=== PATIENT | male | born 1955 | race Caucasian/White ===

== ENCOUNTER 2016-04-14 17:53 | Inpatient (IN) | payer BC, OTHER ==
[~2016-04-14] VITALS: Ht 175.3 cm; Wt 94.9 kg
[2016-04-14] MEDS ORDERED: SODIUM CHLORIDE 0.9% 1000ML 1,000 ML IV SCH (18:10)
--- NOTE | 2016-04-14 18:17 | EMERGENCY ROOM VISIT NOTE ---
History Report prepared by Dar: Delma Pate Under the Supervision of: Dr. David Grimes M.D. 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 The patient's states that the patient came home from work today and took a nap like he usually does after work at 1400. She states when he woke up 3 hours later she noticed he was very confused. 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 She states that she has not noticed any changes in his speech or weakness. The states that she believe her was not showing any symptoms when he arrived home for work but states she did not have much interaction with her before his nap. The patient states that he believes that he felt fine before taking his nap. The patient along with his state the patient has not had any recent change in medication and states he only takes a baby aspirin daily. His states the patient use to take hypertension medication but had been taken off it by his primary care physician due to an improvement in his hypertension. She states the patient does not take any blood thinners. 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 Please see Additional Medical History Sheet. Past Medical & Surgical Medical Problems: (1) Hypertension Family History Cancer Diabetes mellitus Heart disease Hypertension Social History Smoking Status: Current Every Day Smoker Smokeless Tobacco Use: Yes Alcohol Use: occasionally (3-4 drinks/week) Housing Status: lives with significant other Current/Historical Medications Scheduled Aspirin (Aspirin Ec), 81 MG PO DAILY Scheduled PRN Ibuprofen (Advil), 5-6 TAB PO DIRECTED PRN for Pain Allergies Coded Allergies: No Known Allergies (Unverified , 04/14/16) Physical Exam Vital Signs Date Time Temp Pulse Resp B/P Pulse Ox O2 Delivery O2 Flow Rate FiO2 04/14/16 21:28 124/65 96 Room Air 04/14/16 21:24 63 16 04/14/16 20:58 109/72 04/14/16 20:54 57 13 04/14/16 20:28 137/78 04/14/16 20:08 133/79 04/14/16 19:28 142/86 04/14/16 19:24 57 18 04/14/16 19:24 55 18 155/81 96 Room Air 04/14/16 18:30 98 Room Air 04/14/16 18:17 65 04/14/16 17:57 36.9 62 20 179/98 98 Room Air Physical Exam GENERAL: Patient awake, alert, and answered questions but is disoriented and admits to being confused and has normal speech. SKIN: No erythema, pallor, cyanosis or rash HEENT: Normal head, pupils equal, reactive to light and accommodation. Ears normal. Oral cavity and posterior pharynx appear normal. Neck: Without adenopathy, no neck vein distention. LUNGS: Clear to auscultation. No wheezes, no rales, no rhonchi. HEART: No murmurs. No gallops. No rubs ABDOMEN: No masses, no rebound, no hepatomegaly or splenomegaly. EXTREMITIES: No signs of trauma. No pedal or pretibial edema. No calf or thigh tenderness. NEUROLOGIC: Normal speech, patient is confused but appears to have no other focal findings. Cranial nerves II-XII within normal limits. No gross motor sensory function deficits. Medical Decision & Procedures ER Provider Diagnostic Interpretation: CT results are interpretations by the radiologist and per my review. HEAD CT NONCONTRAST CT DOSE: 823.94 mGycm HISTORY: Mental status change Stroke TECHNIQUE: Multiaxial CT images of the head were performed without the use of intravenous contrast. Comparison: None. Findings: The paranasal sinuses and mastoid air cells are clear. The calvarium and skull base are intact. The ventricles and sulci are within normal limits. There is no mass, hematoma, midline shift, or acute infarct. Impression: No acute intracranial abnormality. Electronically signed by: Dimitris Alexander M.D. 04/14/2016 6:22 PM Dictated Date/Time: 04/14/2016 6:21 PM Laboratory Results 04/14/16 17:15 Red Blood Count 4.59, Mean Corpuscular Volume 93.0, Mean Corpuscular Hemoglobin 32.7, Mean Corpuscular Hemoglobin Concent 35.1, Mean Platelet Volume 9.7, Neutrophils (%) (Auto) 50.3, Lymphocytes (%) (Auto) 38.2, Monocytes (%) (Auto) 9.1, Eosinophils (%) (Auto) 1.8, Basophils (%) (Auto) 0.4, Neutrophils # (Auto) 4.50, Lymphocytes # (Auto) 3.43, Monocytes # (Auto) 0.82, Eosinophils # (Auto) 0.16, Basophils # (Auto) 0.04 04/14/16 17:15 Test 04/14/16 17:15 04/14/16 18:41 04/14/16 20:15 White Blood Count 8.97 K/uL (4.8-10.8) Red Blood Count 4.59 M/uL (4.7-6.1) Hemoglobin 15.0 g/dL (14.0-18.0) Hematocrit 42.7 % (42-52) Mean Corpuscular Volume 93.0 fL (80-100) Mean Corpuscular Hemoglobin 32.7 pg (25-34) Mean Corpuscular Hemoglobin Concent 35.1 g/dl (32-36) Platelet Count 253 K/uL (130-400) Mean Platelet Volume 9.7 fL (7.4-10.4) Neutrophils (%) (Auto) 50.3 % Lymphocytes (%) (Auto) 38.2 % Monocytes (%) (Auto) 9.1 % Eosinophils (%) (Auto) 1.8 % Basophils (%) (Auto) 0.4 % Neutrophils # (Auto) 4.50 K/uL (1.4-6.5) Lymphocytes # (Auto) 3.43 K/uL (1.2-3.4) Monocytes # (Auto) 0.82 K/uL (0.11-0.59) Eosinophils # (Auto) 0.16 K/uL (0-0.5) Basophils # (Auto) 0.04 K/uL (0-0.2) RDW Standard Deviation 45.1 fL (36.4-46.3) RDW Coefficient of Variation 13.3 % (11.5-14.5) Immature Granulocyte % (Auto) 0.2 % Immature Granulocyte # (Auto) 0.02 K/uL (0.00-0.02) Prothrombin Time 10.4 SECONDS (9.0-12.0) Prothromb Time International Ratio 1.0 (0.9-1.1) Activated Partial Thromboplast Time 27.5 SECONDS (21.0-31.0) Partial Thromboplastin Ratio 1.1 Anion Gap 9.0 mmol/L (3-11) Est Creatinine Clear Calc Drug Dose 77.2 ml/min Estimated GFR () 76.8 Estimated GFR (Non- 66.3 BUN/Creatinine Ratio 14.7 (10-20) Calcium Level 9.2 mg/dl (8.5-10.1) Total Creatine Kinase 116 U/L (39-308) Creatine Kinase MB 1.5 ng/ml (0.5-3.6) Creatine Kinase MB Ratio 1.3 (0-3.0) Troponin I < 0.015 ng/ml (0-0.045) Bedside Glucose 97 mg/dl (70-99) Urine Opiates Screen NEG (NEG) Urine Methadone, Qualitative NEG (NEG) Urine Barbiturates NEG (NEG) Urine Phencyclidine (PCP) Level NEG (NEG) Ur Amphetamine/Methamphetamine NEG (NEG) MDMA (Ecstasy) Screen NEG (NEG) Urine Benzodiazepines Screen NEG (NEG) Urine Cocaine Metabolite NEG (NEG) Urine Marijuana (THC) NEG (NEG) Laboratory results as stated above per my review. Medications Administered Medications (Trade) Dose Ordered Sig/John Route Start Time Stop Time Status Last Admin Dose Admin Sodium Chloride (Nss 1000ml) 1,000 ml @ 50 mls/hr Q20H IV 04/14/16 18:10 05/14/16 18:09 04/14/16 18:10 50 MLS/HR Aspirin/Aluminum/ Magnesium/Ca Carb (Ascriptin Tab) 325 mg ONE ONCE PO 04/14/16 19:45 04/14/16 19:46 DC 04/14/16 19:45 325 MG ECG Indication: altered mental status Rate (beats per minute): 48 Rhythm: sinus bradycardia Findings: no acute ischemic change, no ectopy ED Course 1805: Past medical records reviewed. The patient was evaluated in room B8. A complete history and physical examination was performed. 1809: Ordered Sodium Chloride 1,000 ml @ 50 mls/hr IV. 1848: I discussed the case with Dr. Rebob Marinelli [facility]. He agreed to evaluate the patient through video communication. 1926:II discussed the case with Dr. Liliana Marinelli [facility]. After evaluating the patient he states he diagnosed the patient with transient global amnesia. He suggest the patient have a EEG, MRI, MRA of the spine, having his blood pressure monitored and be given aspirin. 1935: I reevaluated the patient and updated him on his results. 1943: I discussed the case with Dr. Charlotte SOLORIO Hospitalist, as well as Dr. Ford Neurology [facility] recommendations. He agreed to evaluate the patient for further management and care. 1944: Ordered Ascriptin Tab 325 mg PO. 2011: I revaluated the patient and discussed his admission for further evaluation with him. Medical Decision Nurses notes reviewed. Medical history sheet reviewed. Differential diagnosis includes but is not limited to: TIA, CVA, metabolic disorder, and infection. Multiple labs, EKG and imaging were obtained. Please see above. CT does not reveal bleed. Blood work was unremarkable. The patient arrived with significant confusion but that resolved while here. He had no focal findings. The patient went through a stroke protocol using the [place] neurologist. His NIH stroke score ended up being 0. In light of the above is felt the patient has transient global amnesia. The patient was given aspirin while here in the ED.. Consults Time Called: 1847 Consulting Physician: Dr. Liliana Marinelli [facility] Returned Call: 1848 I discussed the case with Dr. Liliana Marinelli [facility]. He agreed to evaluate the patient through video communication. Additional Consults: Time Called: 1924 Consulted Physician: Dr. Liliana Marinelli [facility] Returned Call: 1926 Additional Comments: I discussed the case with Dr. Liliana Marinelli [facility]. After evaluating the patient he states he diagnosed the patient with transient global amnesia. He suggest the patient have a EEG, MRI, MRA of the spine, having his blood pressure monitored and be given aspirin. Time Called: 1936 Consulted Physician: Dr. Charlotte SOLORIO Hospitalist Returned Call: 1944 Additional Comments: I discussed the case with Dr. Charlotte SOLORIO Hospitalist, as well as Dr. Liliana Marinelli [facility] recommendations. He agreed to evaluate the patient for further management and care. Impression Primary Impression: Transient global amnesia Critical Care I have personally spent greater than 35 minutes of critical care time in the direct management of this patient. This includes bedside care, interpretation of diagnostic studies, and testing, discussion with consultants, patient, and family members, and other required patient management activities. This 35 minutes is in excess of all separately billable procedures. Scribe Attestation The scribe's documentation has been prepared under my direction and personally reviewed by me in its entirety. I confirm that the note above accurately reflects all work, treatment, procedures, and medical decision making performed by me. Departure Information Dispostion Being Evaluated By Hospitalist Referrals RV. Claire MD (PCP) Patient Instructions My [facility]
--- NOTE | 2016-04-14 18:23 | DIAGNOSTIC IMAGING REPORT ---
HEAD CT NONCONTRAST CT DOSE: 823.94 mGycm HISTORY: Mental status change Stroke TECHNIQUE: Multiaxial CT images of the head were performed without the use of intravenous contrast. Comparison: None. Findings: The paranasal sinuses and mastoid air cells are clear. The calvarium and skull base are intact. The ventricles and sulci are within normal limits. There is no mass, hematoma, midline shift, or acute infarct. Impression: No acute intracranial abnormality. Electronically signed by: Dimitris Alexander M.D. 04/14/2016 6:22 PM Dictated Date/Time: 04/14/2016 6:21 PM
[2016-04-14 18:26] LABS: BASO % 0.4 %; BASO ABS # 0.04 K/uL (0-0.2); COMPLETE YES; EOS % 1.8 %; HEMATOCRIT 42.7 % (42-52); IG% 0.2 %; LYMPH % 38.2 %; LYMPH ABS # 3.43 K/uL (1.2-3.4); MEAN CORPUSCULAR HEMOGLOBIN 32.7 pg (25-34); MEAN CORPUSCULAR HGB CONC 35.1 g/dl (32-36); MEAN PLATELET VOLUME 9.7 fL (7.4-10.4); MONO % 9.1 %; NEUT % 50.3 %; PLATELET COUNT 253 K/uL (130-400); RED BLOOD COUNT 4.59 M/uL (4.7-6.1); WHITE BLOOD COUNT 8.97 K/uL (4.8-10.8)
[2016-04-14] MEDS ORDERED: ASPI81TA28 PO (18:35)
[2016-04-14] MEDS ORDERED: IBUP-1050 PO (18:36)
[2016-04-14 18:37] LABS: PARTIAL THROMBOPLASTIN RATIO 1.1; PROTHROMBIN TIME (PATIENT) 10.4 SECONDS (9.0-12.0)
[2016-04-14 18:46] LABS: BLOOD UREA NITROGEN 18 mg/dl (7-18); BUN/CREATININE RATIO 14.7 (10-20); CALCIUM 9.2 mg/dl (8.5-10.1); CARBON DIOXIDE 26 mmol/L (21-32); CHLORIDE 106 mmol/L (98-107); GLUCOSE 92 mg/dl (70-99); POTASSIUM 4.2 mmol/L (3.5-5.1); SODIUM 141 mmol/L (136-145)
[2016-04-14 18:51] LABS: CKMB/CK RATIO 1.3 (0-3.0)
[2016-04-14] MEDS ORDERED: ASPIRIN/ALUM/MAGNES/CAL CARB 325 MG TAB PO ONE (19:45)
[2016-04-14 20:45] LABS: BENZODIAZEPINE, URINE NEG (NEG); COCAINE,URINE NEG (NEG); PHENCYCLIDINE, URINE NEG (NEG)
[2016-04-14] MEDS ORDERED: ALUMINUM/MAGNESIUM/SIMETH (MAALOX MAX) 30 ML UDC PO PRN (22:00)
[2016-04-14] MEDS ORDERED: ONDANSETRON INJ 2 MG/ML 2 ML VIAL IV PRN (22:00)
[2016-04-14] MEDS ORDERED: POLYETHYLENE (MIRALAX) 17 GM PACK PO PRN (22:00)
[2016-04-14] MEDS ORDERED: PHARMACIST DISCHARGE MED REC CONSULT PRN (22:00)
[2016-04-14] MEDS ORDERED: ACETAMINOPHEN 325 MG TAB PO PRN (22:00)
[2016-04-14] MEDS ORDERED: MAGNESIUM HYDROXIDE SUSP 30 ML UDC PO PRN (22:00)
--- NOTE | 2016-04-14 22:22 | History and Physical ---
History & Physical Date & Time of Service: Apr 14, 2016 at 22:08 Chief Complaint: Confusion Primary Care Physician: RV. Claire MD History of Present Illness Source: patient, spouse 60 y/o M who denies a significant medical history. 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 He recalls waking up at 5pm, walking to the bathroom and then does not remember anything until he arrived at the hospital a few hours later. His was with him throughout and states that he was disoriented and had lost his short-term memory although he did have long-term recall. He does not use sleep aids. He denies a FITZGERALD, unilateral weakness, slurred speech or impaired vision. He has no history of vascular disease. Initial CT obtained in the ER was negative for any pathology. He will be admitted for a TIA/TGA work-up. He is fully oriented at the time of admission and states that he feels back to baseline. Family History Cancer Diabetes mellitus Heart disease Hypertension Mother with Hx CVA Father following PR Social History Smokes five cigarettes daily. 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 Drinks ETOH 2 x wk when he mows the lawn. Smoking Status: Current Every Day Smoker Smokeless Tobacco Use: Yes Multi-Drug Resistant Organisms History of MDRO: No Allergies Coded Allergies: No Known Allergies (Unverified , 04/14/16) Home Medications Scheduled Aspirin (Aspirin Ec), 81 MG PO DAILY Scheduled PRN Ibuprofen (Advil), 5-6 TAB PO DIRECTED PRN for Pain Review of Systems Constitutional: No chills, No fever, No sweats Eyes: No eye pain, No worsening of vision ENT: No hearing loss, No nasal symptoms, No unusual epistaxis Respiratory: No cough, No sputum, No wheezing Cardiovascular: No PND, No chest pain, No orthopnea Abdomen: No nausea, No pain, No vomiting Musculoskeletal: No joint pain, No muscle pain Genitourinary - Male: No dysuria, No hematuria, No urinary frequency, No urinary urgency Neurologic: + memory loss, + problem reported (disorientation) Psychiatric: No depression symptoms Endocrine: No fatigue Integumentary: No rash Allergic / Immunologic: No environmental allergies Physical Exam Vital Signs Date Time Temp Pulse Resp B/P Pulse Ox O2 Delivery O2 Flow Rate FiO2 04/14/16 21:28 124/65 96 Room Air 04/14/16 21:24 63 16 04/14/16 20:58 109/72 04/14/16 20:54 57 13 04/14/16 20:28 137/78 04/14/16 20:08 133/79 04/14/16 19:28 142/86 04/14/16 19:24 57 18 04/14/16 19:24 55 18 155/81 96 Room Air 04/14/16 18:30 98 Room Air 04/14/16 18:17 65 04/14/16 17:57 36.9 62 20 179/98 98 Room Air General Appearance: WD/WN, no apparent distress Head: normocephalic, atraumatic Eyes: normal inspection, PERRL, EOMI ENT: normal ENT inspection, hearing grossly normal, pharynx normal Neck: supple, no JVD Respiratory/Chest: chest non-tender, lungs clear, normal breath sounds, no respiratory distress, no accessory muscle use Cardiovascular: regular rate, rhythm, no edema, no gallop, no JVD, no murmur, normal peripheral pulses Abdomen/GI: normal bowel sounds, non tender, soft Back: normal inspection, no CVA tenderness Extremities/Musculoskelatal: normal inspection, no calf tenderness, normal capillary refill, no pedal edema, normal range of motion 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, no motor/sensory deficits, alert, normal mood/affect, normal reflexes, oriented x 3 Skin: normal color, warm/dry, no rash Lymphatic: no adenopathy Diagnostics Laboratory Results Results Past 24 Hours Test 04/14/16 17:15 04/14/16 18:41 04/14/16 20:15 04/14/16 21:48 Range/Units White Blood Count 8.97 4.8-10.8 K/uL Red Blood Count 4.59 4.7-6.1 M/uL Hemoglobin 15.0 14.0-18.0 g/dL Hematocrit 42.7 42-52 % Mean Corpuscular Volume 93.0 80-100 fL Mean Corpuscular Hemoglobin 32.7 25-34 pg Mean Corpuscular Hemoglobin Concent 35.1 32-36 g/dl Platelet Count 253 130-400 K/uL Mean Platelet Volume 9.7 7.4-10.4 fL Neutrophils (%) (Auto) 50.3 % Lymphocytes (%) (Auto) 38.2 % Monocytes (%) (Auto) 9.1 % Eosinophils (%) (Auto) 1.8 % Basophils (%) (Auto) 0.4 % Neutrophils # (Auto) 4.50 1.4-6.5 K/uL Lymphocytes # (Auto) 3.43 1.2-3.4 K/uL Monocytes # (Auto) 0.82 0.11-0.59 K/uL Eosinophils # (Auto) 0.16 0-0.5 K/uL Basophils # (Auto) 0.04 0-0.2 K/uL RDW Standard Deviation 45.1 36.4-46.3 fL RDW Coefficient of Variation 13.3 11.5-14.5 % Immature Granulocyte % (Auto) 0.2 % Immature Granulocyte # (Auto) 0.02 0.00-0.02 K/uL Prothrombin Time 10.4 9.0-12.0 SECONDS Prothromb Time International Ratio 1.0 0.9-1.1 Activated Partial Thromboplast Time 27.5 21.0-31.0 SECONDS Partial Thromboplastin Ratio 1.1 Sodium Level 141 136-145 mmol/L Potassium Level 4.2 3.5-5.1 mmol/L Chloride Level 106 98-107 mmol/L Carbon Dioxide Level 26 21-32 mmol/L Anion Gap 9.0 3-11 mmol/L Blood Urea Nitrogen 18 7-18 mg/dl Creatinine 1.20 0.60-1.40 mg/dl Est Creatinine Clear Calc Drug Dose 77.2 ml/min Estimated GFR () 76.8 Estimated GFR (Non- 66.3 BUN/Creatinine Ratio 14.7 10-20 Random Glucose 92 70-99 mg/dl Calcium Level 9.2 8.5-10.1 mg/dl Total Creatine Kinase 116 39-308 U/L Creatine Kinase MB 1.5 0.5-3.6 ng/ml Creatine Kinase MB Ratio 1.3 0-3.0 Troponin I < 0.015 0-0.045 ng/ml Bedside Glucose 97 70-99 mg/dl Urine Opiates Screen NEG NEG Urine Methadone, Qualitative NEG NEG Urine Barbiturates NEG NEG Urine Phencyclidine (PCP) Level NEG NEG Ur Amphetamine/Methamphetamine NEG NEG MDMA (Ecstasy) Screen NEG NEG Urine Benzodiazepines Screen NEG NEG Urine Cocaine Metabolite NEG NEG Urine Marijuana (THC) NEG NEG Diagnostic Radiology CT head negative Normal EKG Impression Assessment and Plan 60 y/o M who denies a significant medical history. Recalls waking up at 5pm following a nap, walking to the bathroom and then does not remember anything until he arrived at the hospital a few hours later. His was with him throughout and states that he was disoriented and had lost his short-term memory , although he did have long-term recall. Initial CT obtained in the ER was negative for any pathology. He will be admitted for a TIA/TGA work-up. He is fully oriented at the time of admission and states that he feels back to baseline. 1) TIA - transient global amnesia - admitted with CVA protocol - placed on full dose ASA and Statin pending AM lipid profile - pt is normotensive. Frequent neuro checks requested. MRI/MRA pending. 2) Advised on smoking cessation. Full code - Heparin prophylaxis Total time foir this admit including review of labs, meds, imaging, EKG - discussion with Pt/, ER attending - 33 min Case was discussed wuth the stroke service at [place] prior to admission Level of Care Telemetry Resuscitation Status FULL RESUSCITATION VTE Prophylaxis VTE Risk Assessment Done? Y/N: Yes Risk Level: Low Given or contraindicated: Unfractionated heparin SQ
[2016-04-14 22:24] VITALS: Ht 175.3 cm; Wt 94.9 kg
--- NOTE | 2016-04-14 22:59 | DIAGNOSTIC IMAGING REPORT ---
Brain MRA HISTORY: Mental status change cava TECHNIQUE: 3-D [id number] MRA of the brain was performed without contrast. COMPARISON STUDY: None. FINDINGS: Visualized intracranial internal carotid arteries, distal vertebral arteries, and basilar artery are widely patent. 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 IMPRESSION: No significant stenosis, occlusion, or aneurysm within the [place]. Electronically signed by: Dimitris Alexander M.D. 04/14/2016 10:58 PM Dictated Date/Time: 04/14/2016 10:57 PM
[2016-04-14] MEDS ORDERED: MAGNEVIST IV PRN (23:30)
[2016-04-15] VITALS (8 sets, daily range): BP systolic 107–130; BP diastolic 64–77; PULSE 49–107; TEMP 36.3–37.1; O2SAT 94–97
[2016-04-15] MEDS: HEPARIN SOD 5000 UNIT/0.5 ML CARP SQ SCH ×3 (05:50→21:39)
[2016-04-15 06:08] LABS: ESTIMATED AVERAGE GLUCOSE 108 mg/dl; HA1C FLAG Normal (Normal)
--- NOTE | 2016-04-15 06:42 | DIAGNOSTIC IMAGING REPORT ---
MRA OF THE NECK WITH AND WITHOUT CONTRAST CLINICAL HISTORY: Confusion. Possible cerebrovascular accident. COMPARISON STUDY: None. TECHNIQUE: Unenhanced and contrast-enhanced MRA of the neck was performed. Injection of 20 mL of Magnevist IV was uneventful. NASCET criteria were utilized to estimate the degree of carotid stenosis. FINDINGS: The bilateral common carotid, internal carotid and vertebral arteries are patent. No stenosis is identified. There is no evidence for dissection. No vessel occlusion is identified. The soft tissues of the neck are suboptimally assessed on this exam but are grossly unremarkable. The left vertebral artery is dominant. IMPRESSION: Unremarkable MRA of the neck. Electronically signed by: Alvin Orellana M.D. 04/15/2016 6:41 AM Dictated Date/Time: 04/15/2016 6:37 AM
[2016-04-15 07:12] LABS: BASO % 0.3 %; BASO ABS # 0.02 K/uL (0-0.2); COMPLETE YES; EOS % 2.7 %; HEMATOCRIT 39.3 % (42-52); IG% 0.2 %; LYMPH % 28.9 %; LYMPH ABS # 1.84 K/uL (1.2-3.4); MEAN CELL VOLUME 91.2 fL (80-100); MEAN CORPUSCULAR HGB CONC 35.1 g/dl (32-36); MEAN PLATELET VOLUME 9.4 fL (7.4-10.4); NEUT % 56.9 %; PLATELET COUNT 241 K/uL (130-400); RED BLOOD COUNT 4.31 M/uL (4.7-6.1); WHITE BLOOD COUNT 6.36 K/uL (4.8-10.8)
--- NOTE | 2016-04-15 07:22 | DIAGNOSTIC IMAGING REPORT ---
MRI OF THE BRAIN WITHOUT IV CONTRAST CLINICAL HISTORY: Change in mental status. COMPARISON STUDY: CT of the brain dated 04/14/2016. TECHNIQUE: MRI of the brain was performed utilizing various T1 and T2-weighted sequences in the axial, sagittal, and coronal planes. IV contrast was not administered for this examination. FINDINGS: Brain parenchyma: The brain parenchyma is normal in appearance. There is no hemorrhage or mass effect. There is no restricted diffusion to suggest acute ischemia. Sandoval-white matter differentiation is preserved. No extra-axial fluid collection is seen. The cerebellar tonsils are normal in configuration. Ventricles, sulci, and cisterns: Normal in configuration. Pituitary and sella: Unremarkable. Intracranial vasculature: Normal flow voids are maintained at the skull base. Orbits: The bony orbits are grossly intact. Orbital contents are normal in appearance. Sinuses and mastoids: There is mild to moderate mucosal thickening within the left maxillary antrum. Trace mucosal thickening seen throughout the remaining paranasal sinuses. The mastoid air cells are clear. Calvarium: Unremarkable. Cervical cord: Partially visualized cervical spinal cord is normal in morphology and signal intensity. IMPRESSION: No acute intracranial abnormality. Electronically signed by: Eulalio Henriquez M.D. 04/15/2016 7:20 AM Dictated Date/Time: 04/15/2016 7:18 AM
[2016-04-15 07:46] LABS: BUN/CREATININE RATIO 14.2 (10-20); CALCIUM 8.4 mg/dl (8.5-10.1); POTASSIUM 4.2 mmol/L (3.5-5.1)
[2016-04-15 07:50] LABS: CHOLESTEROL/HDL RATIO 3.5
--- NOTE | 2016-04-15 08:26 | Neurology Consultation ---
Neurology Consultation Date of Consultation: Apr 15, 2016. Attending Physician: Leodan Porter MD Primary Care Physician: RV. Claire MD Reason for Consultation: Patient is a 60-year-old, was asked to see the request of Dr. Porter, for neurologic consultation regarding transient period of confusion/memory problems. History of Present Illness Source: patient, spouse, hospital records This patient has no history of stroke, seizures, significant head trauma, migraine or other headaches, heart disease, dyslipidemia, or diabetes. He does have a history of hypertension in the past which was treated but more recently he was taken off medication because his numbers look better. He's been on 81 mg aspirin tablet for 8 years on "general principle". He went to work as usual April 14. 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 He did well at work and had no illness or significant issues. He was not overly tired or sleep deprived. He came home at 2 PM as usual. He went right to his usual naps and his , who was present in the room today, did not interact with much so she cannot be certain whether he was confused or not prior to taking a nap. He woke up at 5 PM as usual. His noticed that something was wrong because the patient came out after a 10 minute interval stating he couldn't figure out how to feed the dogs (something he does every day right after he wakes up from his nap). He was having no memory of events of work and the patient tells me now that he had no recall of anything from the time he woke up from his nap until now after he was at the emergency room. The patient's states that he had no complaint of pain or headache he had no balance problems, facial droop, vision complaints, weakness or numbness of the limbs, incontinence, or any physical abnormality. It was just that his memory was poor and he did not know any facts about time place or current events. He arrived in emergency room on January 12 at 1757 hours. Blood pressure was 179/98 with a pulse of 62 and regular, temperature 36.9, respiratory rate 20, O2 saturation 98%. He had no focal neurologic deficits on exam when he was described as "confused" . CT scan of the head was unremarkable. Chem profile, CBC and urine tox screen were unremarkable as well. He was connected with Tele-stroke and was evaluated by Dr. Ford from [facility]. He felt the patient had transient global amnesia and did not have a stroke. TPA was not given. An MRI of the brain was unremarkable with no evidence of acute stroke and no evidence of old small vessel ischemic changes or other abnormalities. MR angiography of the head was unremarkable with no significant stenoses or aneurysms MR angiography of the neck was unremarkable as well with no significant stenoses. This morning the patient feels normal with no symptoms. His memory is good and according to him and his is back to baseline. Past Medical/Surgical History Medical Problems: (1) Transient global amnesia Status: Acute Hypertension History of tonsillectomy, throat polyp removal in the , right knee ligament repair in 1978 and more recently foot surgery with bunionectomy. Family History Mother in her 70s of a stroke and hypertension. Father at 81 with an [facility] and had hypertension Social History Patient smokes a pack of cigarettes every 3-4 days (about 5 cigarettes a day). He'll drink 3 beers twice a week when he goes bowling. He has been working at [employer] as media services coordinator for the last 20 years. 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 Smoking Status: Current every day smoker Smokeless Tobacco Use: No Alcohol Use: occasionally Drug Use: none Marital Status: Housing Status: lives with family, lives with significant other Occupation Status: employed Allergies Coded Allergies: No Known Allergies (Unverified , 04/14/16) Current Inpatient Medications Current Inpatient Medications Medications (Trade) Dose Ordered Sig/John Route Start Time Stop Time Status Last Admin Dose Admin Atorvastatin Calcium (Lipitor Tab) 40 mg QAM PO 04/15/16 09:00 05/15/16 08:59 04/15/16 07:48 40 MG Aspirin (Ecotrin Tab) 325 mg QAM PO 04/15/16 09:00 05/15/16 08:59 04/15/16 07:48 325 MG Miscellaneous Information (Pharmacist Discharge Med Rec Consult) 1 ea UD PRN N/A 04/14/16 22:00 05/14/16 21:59 Heparin Sodium (Porcine) (Heparin Sq 5000 Unit/0.5ml) 5,000 unit Q8 SQ 04/15/16 06:00 05/15/16 05:59 04/15/16 05:50 5,000 UNIT Acetaminophen (Tylenol Tab) 650 mg Q4H PRN PO 04/14/16 22:00 05/14/16 21:59 Al Hydrox/Mg Hydrox/Simethicone (Maalox Max Susp) 15 ml Q4H PRN PO 04/14/16 22:00 05/14/16 21:59 Magnesium Hydroxide (Milk Of Magnesia Susp) 30 ml Q12H PRN PO 04/14/16 22:00 05/14/16 21:59 Ondansetron HCl (Zofran Inj) 4 mg Q6H PRN IV 04/14/16 22:00 05/14/16 21:59 Polyethylene (Miralax Powder Packet) 17 gm DAILY PRN PO 04/14/16 22:00 05/14/16 21:59 Gadopentetate Dimeglumine (Magnevist) 20 ml UD PRN IV 04/14/16 23:30 04/18/16 23:29 Review of Systems Constitutional: No fatigue, No weakness, No weight loss Eyes: No diplopia, No worsening of vision ENT: No hearing loss, No tinnitus Respiratory: No cough, No shortness of breath Cardiovascular: No chest pain, No palpitations Abdomen: No nausea, No pain Musculoskeletal: No joint pain, No muscle pain Genitourinary - Male: No dysuria, No hematuria, No urinary incontinence Neurologic: No balance problems, No memory loss, No numbness/tingling, No vertigo, No weakness Psychiatric: No anxiety, No depression symptoms Endocrine: No fatigue Hematologic / Lymphatic: No abnormal bleeding/bruising Integumentary: No rash Allergic / Immunologic: No hives Physical Exam Vital Signs (Past 24 Hrs): Date Time Temp Pulse Resp B/P Pulse Ox O2 Delivery O2 Flow Rate FiO2 04/15/16 07:58 36.8 50 16 113/66 96 Room Air 04/15/16 05:10 36.3 49 16 107/67 97 Room Air 04/15/16 04:00 Room Air 04/15/16 00:00 36.7 52 16 130/77 97 Room Air 04/14/16 23:50 57 20 119/69 96 Room Air 04/14/16 22:24 Room Air 04/14/16 21:28 124/65 96 Room Air 04/14/16 21:24 63 16 04/14/16 20:58 109/72 04/14/16 20:54 57 13 04/14/16 20:28 137/78 04/14/16 20:08 133/79 04/14/16 19:28 142/86 04/14/16 19:24 57 18 04/14/16 19:24 55 18 155/81 96 Room Air 04/14/16 18:30 98 Room Air 04/14/16 18:17 65 04/14/16 17:57 36.9 62 20 179/98 98 Room Air The patient is right-handed. The patient is awake and alert. Speech is normal without aphasia or dysarthria. Mentation and thought processes are intact with orientation and normal fund of knowledge. Mood and affect are normal and appropriate. Appearance and grooming are normal. The discs are sharp with positive venous pulsations. There are no exudates, hemorrhages, or blood vessel changes seen. Pupils are 4mm bilaterally and reactive to light. Extraocular eye muscles are intact without nystagmus. Visual acuity and visual gay seem normal grossly to confrontation. There are no deficits to sensation of the face bilaterally. Corneal reflexes are positive bilaterally. Facial strength and symmetry is normal bilaterally. Hearing seems intact grossly to voice and finger rub. Palate moves well without asymmetry. There is normal sternocleidomastoid and trapezius strength bilaterally. Tongue is midline with good strength bilaterally. Neck is with full range of motion without discomfort. There are no cervical bruits. There are no cranial or ocular bruits. Heart is without murmur. Cervical, thoracic, and lumbar spine are nontender to palpation. Gait is normal. There is good are swing, turn, stance, and balance. With outstretched arms there is no drift. There are no resting, postural, or action tremors. There is no ataxia with [id number] testing. There is good facility in the hands. There are no abnormal involuntary movements noted. Motor strength is 5/5 diffusely in the arms bilaterally including deltoids, biceps, brachioradialis, wrist flexors and extensors, knitting machine tender, and intrinsic hand muscles. Motor strength is 5/5 diffusely in the legs bilaterally including hip flexors, quadriceps, hamstring, gastrocnemius, tibialis anterior, tibialis posterior, and peroneii muscles bilaterally. Toe extensors are normal and there is good bulk in the extensor digitorum brevis muscle bilaterally. The limbs have good tone without rigidity or spasticity, and there is no atrophy noted. Muscle bulk is normal, there is no tenderness, no myotonia noted to percussion, and no fasciculations seen. Sensory examination is intact to pin and touch throughout all four limbs. Reflexes are 1/4 in the biceps, triceps, brachioradialis, quadriceps, and Achilles tendons bilaterally. Toes are downgoing with plantar stimulation bilaterally. Peripheral pulses are present and of normal quality distally in all four limbs. There is no peripheral edema noted. Laboratory Results Past 24 Hours: 04/15/16 06:30 Red Blood Count 4.31, Mean Corpuscular Volume 91.2, Mean Corpuscular Hemoglobin 32.0, Mean Corpuscular Hemoglobin Concent 35.1, Mean Platelet Volume 9.4, Neutrophils (%) (Auto) 56.9, Lymphocytes (%) (Auto) 28.9, Monocytes (%) (Auto) 11.0, Eosinophils (%) (Auto) 2.7, Basophils (%) (Auto) 0.3, Neutrophils # (Auto ) 3.62, Lymphocytes # (Auto) 1.84, Monocytes # (Auto) 0.70, Eosinophils # (Auto ) 0.17, Basophils # (Auto) 0.02 04/15/16 06:30 Test 04/14/16 17:15 04/14/16 18:41 04/14/16 20:15 04/15/16 06:30 Prothrombin Time 10.4 SECONDS (9.0-12.0) Prothromb Time International Ratio 1.0 (0.9-1.1) Activated Partial Thromboplast Time 27.5 SECONDS (21.0-31.0) Partial Thromboplastin Ratio 1.1 Estimated Average Glucose 108 mg/dl Hemoglobin A1c 5.4 % (4.5-5.6) Total Creatine Kinase 116 U/L (39-308) Creatine Kinase MB 1.5 ng/ml (0.5-3.6) Creatine Kinase MB Ratio 1.3 (0-3.0) Troponin I < 0.015 ng/ml (0-0.045) Bedside Glucose 97 mg/dl (70-99) Urine Opiates Screen NEG (NEG) Urine Methadone, Qualitative NEG (NEG) Urine Barbiturates NEG (NEG) Urine Phencyclidine (PCP) Level NEG (NEG) Ur Amphetamine/Methamphetamine NEG (NEG) MDMA (Ecstasy) Screen NEG (NEG) Urine Benzodiazepines Screen NEG (NEG) Urine Cocaine Metabolite NEG (NEG) Urine Marijuana (THC) NEG (NEG) White Blood Count 6.36 K/uL (4.8-10.8) Red Blood Count 4.31 M/uL (4.7-6.1) Hemoglobin 13.8 g/dL (14.0-18.0) Hematocrit 39.3 % (42-52) Mean Corpuscular Volume 91.2 fL (80-100) Mean Corpuscular Hemoglobin 32.0 pg (25-34) Mean Corpuscular Hemoglobin Concent 35.1 g/dl (32-36) Platelet Count 241 K/uL (130-400) Mean Platelet Volume 9.4 fL (7.4-10.4) Neutrophils (%) (Auto) 56.9 % Lymphocytes (%) (Auto) 28.9 % Monocytes (%) (Auto) 11.0 % Eosinophils (%) (Auto) 2.7 % Basophils (%) (Auto) 0.3 % Neutrophils # (Auto) 3.62 K/uL (1.4-6.5) Lymphocytes # (Auto) 1.84 K/uL (1.2-3.4) Monocytes # (Auto) 0.70 K/uL (0.11-0.59) Eosinophils # (Auto) 0.17 K/uL (0-0.5) Basophils # (Auto) 0.02 K/uL (0-0.2) RDW Standard Deviation 44.3 fL (36.4-46.3) RDW Coefficient of Variation 13.2 % (11.5-14.5) Immature Granulocyte % (Auto) 0.2 % Immature Granulocyte # (Auto) 0.01 K/uL (0.00-0.02) Anion Gap 8.0 mmol/L (3-11) Est Creatinine Clear Calc Drug Dose 91.5 ml/min Estimated GFR () 95.7 Estimated GFR (Non- 82.6 BUN/Creatinine Ratio 14.2 (10-20) Calcium Level 8.4 mg/dl (8.5-10.1) Triglycerides Level 132 mg/dl (0-150) Cholesterol Level 176 mg/dl (0-200) HDL Cholesterol 51 mg/dl LDL Cholesterol, Calculated 99 mg/dl VLDL Cholesterol, Calculated 26 mg/dl Cholesterol/HDL Ratio 3.5 Imaging MRI OF THE BRAIN WITHOUT IV CONTRAST CLINICAL HISTORY: Change in mental status. COMPARISON STUDY: CT of the brain dated 04/14/2016. TECHNIQUE: MRI of the brain was performed utilizing various T1 and T2-weighted sequences in the axial, sagittal, and coronal planes. IV contrast was not administered for this examination. FINDINGS: Brain parenchyma: The brain parenchyma is normal in appearance. There is no hemorrhage or mass effect. There is no restricted diffusion to suggest acute ischemia. Sandoval-white matter differentiation is preserved. No extra-axial fluid collection is seen. The cerebellar tonsils are normal in configuration. Ventricles, sulci, and cisterns: Normal in configuration. Pituitary and sella: Unremarkable. Intracranial vasculature: Normal flow voids are maintained at the skull base. Orbits: The bony orbits are grossly intact. Orbital contents are normal in appearance. Sinuses and mastoids: There is mild to moderate mucosal thickening within the left maxillary antrum. Trace mucosal thickening seen throughout the remaining paranasal sinuses. The mastoid air cells are clear. Calvarium: Unremarkable. Cervical cord: Partially visualized cervical spinal cord is normal in morphology and signal intensity. IMPRESSION: No acute intracranial abnormality. Electronically signed by: Eulalio Henriquez M.D. 04/15/2016 7:20 AM Dictated Date/Time: 04/15/2016 7:18 AM Brain MRA HISTORY: Mental status change cava TECHNIQUE: 3-D [id number] MRA of the brain was performed without contrast. COMPARISON STUDY: None. FINDINGS: Visualized intracranial internal carotid arteries, distal vertebral arteries, and basilar artery are widely patent. There is no significant stenosis, occlusion, or aneurysm seen within the bilateral ACAs, MCAs, or behavioral sciences department chair. IMPRESSION: No significant stenosis, occlusion, or aneurysm within the [place]. Electronically signed by: Dimitris Alexander M.D. 04/14/2016 10:58 PM Dictated Date/Time: 04/14/2016 10:57 PM MRA OF THE NECK WITH AND WITHOUT CONTRAST CLINICAL HISTORY: Confusion. Possible cerebrovascular accident. COMPARISON STUDY: None. TECHNIQUE: Unenhanced and contrast-enhanced MRA of the neck was performed. Injection of 20 mL of Magnevist IV was uneventful. NASCET criteria were utilized to estimate the degree of carotid stenosis. FINDINGS: The bilateral common carotid, internal carotid and vertebral arteries are patent. No stenosis is identified. There is no evidence for dissection. No vessel occlusion is identified. The soft tissues of the neck are suboptimally assessed on this exam but are grossly unremarkable. The left vertebral artery is dominant. IMPRESSION: Unremarkable MRA of the neck. Electronically signed by: Alvin Orellana M.D. 04/15/2016 6:41 AM Dictated Date/Time: 04/15/2016 6:37 AM Impression 1. Episode, lasting 3-4 hours, of memory dysfunction, most consistent with transient global amnesia. There is no evidence of acute stroke and there is no evidence of previous cerebrovascular events with an MRI being quite normal. Circulation the head and neck is unremarkable with no stenoses or aneurysm. On neurologic examination, he is normal with no focal signs, meningeal signs, or encephalopathy. Etiology of transient global seizures considered to be vasospasm in the temporal lobe. In his case, it is most likely due to vasospasm secondary to hypertension. There is no evidence to suggest a seizure disorder in this patient. 2. Hypertension Not adequately controlled off medication. Glucose is normal and lipid profile was unremarkable. Plan 1. Treat and control blood pressure 2. I see no reason for any additional neurologic testing or treatment at this time. 3. Continue 81 mg aspirin tablet daily. I can follow as an outpatient if desired but really he needs to return to his primary care physician and have his blood pressure optimally controlled. Please contact me if I can be of further assistance.
[2016-04-15] MEDS ORDERED: ASPIRIN 81 MG ECTAB PO SCH (09:00)
[2016-04-15] MEDS ORDERED: ATORVASTATIN 40 MG TAB PO SCH (09:00)
--- NOTE | 2016-04-15 11:57 | EEG Procedure Note ---
EEG Procedure Note Date of Service Apr 15, 2016. Start / End Times Start Time: 10:00 AM End Time: 10:21 AM Referring Physician Joselito Moffett History This is a 60-year-old male who presents with transient global amnesia. EEG for further evaluation of possible seizure etiology. Home Medication List Scheduled Aspirin (Aspirin Ec), 81 MG PO DAILY Scheduled PRN Ibuprofen (Advil), 5-6 TAB PO DIRECTED PRN for Pain Inpatient Medication List Current Inpatient Medications Medications (Trade) Dose Ordered Sig/John Route Start Time Stop Time Status Last Admin Dose Admin Atorvastatin Calcium (Lipitor Tab) 40 mg QAM PO 04/15/16 09:00 05/15/16 08:59 04/15/16 07:48 40 MG Aspirin (Ecotrin Tab) 325 mg QAM PO 04/15/16 09:00 05/15/16 08:59 04/15/16 07:48 325 MG Miscellaneous Information (Pharmacist Discharge Med Rec Consult) 1 ea UD PRN N/A 04/14/16 22:00 05/14/16 21:59 Heparin Sodium (Porcine) (Heparin Sq 5000 Unit/0.5ml) 5,000 unit Q8 SQ 04/15/16 06:00 05/15/16 05:59 04/15/16 05:50 5,000 UNIT Acetaminophen (Tylenol Tab) 650 mg Q4H PRN PO 04/14/16 22:00 05/14/16 21:59 Al Hydrox/Mg Hydrox/Simethicone (Maalox Max Susp) 15 ml Q4H PRN PO 04/14/16 22:00 05/14/16 21:59 Magnesium Hydroxide (Milk Of Magnesia Susp) 30 ml Q12H PRN PO 04/14/16 22:00 05/14/16 21:59 Ondansetron HCl (Zofran Inj) 4 mg Q6H PRN IV 04/14/16 22:00 05/14/16 21:59 Polyethylene (Miralax Powder Packet) 17 gm DAILY PRN PO 04/14/16 22:00 05/14/16 21:59 Gadopentetate Dimeglumine (Magnevist) 20 ml UD PRN IV 04/14/16 23:30 04/18/16 23:29 Description This is a 21 electrode EEG with a single channel dedicated to limited EKG. The electrodes were placed in accordance with the International 10-20 system. At the start of the recording the patient was in an awake state. Background was well organized and composed of symmetric mixed alpha and beta frequencies. There was a symmetric well-formed moderate amplitude 10-11 Hz posterior dominant rhythm that was reactive to eye opening and closure. Hyperventilation was not done. Intermittent photic stimulation at various frequencies produced no abnormalities. Drowsiness was indicated by slowing of the background rhythm and loss of muscle artifact. There was no sleep transients. Interpretation This is a normal awake and drowsy routine EEG. There was no electrographic seizures or epileptiform discharges. Clinical Correlation A normal EEG does not rule out epilepsy if there is a strong clinical suspicion.
--- NOTE | 2016-04-15 23:06 | Progress Note ---
Subjective Date of Service: Apr 15, 2016. Subjective Pt evaluation today including: conversation w/ patient, conversation w/ family ( at bedside), physical exam, chart review, lab review, review of studies ( MRI, MRA, EEG), conversation w/ product/industry consultant (neurology), review of inpatient medication list Pain: denies PO Intake: normal Voiding: no voiding problems telemetry with sinus bradycardia only. no further memory disturbance. denies any neuro symptoms - specifically, no sensory loss, motor weakness, dizziness, dysarthria, or dysphagia. Problem List Medical Problems: (1) Transient global amnesia Status: Acute Review of Systems Constitutional: No fever Respiratory: No cough, No shortness of breath Cardiac: No chest pain Abdomen: No pain Objective Vital Signs Date Time Temp Pulse Resp B/P Pulse Ox O2 Delivery O2 Flow Rate FiO2 04/15/16 20:00 94 Room Air 04/15/16 19:51 37.1 107 16 112/70 94 Room Air 04/15/16 16:30 Room Air 04/15/16 15:20 36.8 50 16 108/68 95 Room Air 04/15/16 12:45 Room Air 04/15/16 11:56 36.9 54 16 113/72 96 Room Air 04/15/16 08:45 Room Air 04/15/16 07:58 36.8 50 16 113/66 96 Room Air 04/15/16 05:10 36.3 49 16 107/67 97 Room Air 04/15/16 04:00 Room Air 04/15/16 00:00 36.7 52 16 130/77 97 Room Air 04/14/16 23:50 57 20 119/69 96 Room Air Physical Exam General Appearance: no apparent distress ENT: pharynx normal Neck: no JVD Respiratory/Chest: lungs clear, no respiratory distress, no accessory muscle use Cardiovascular: no gallop, no murmur, + bradycardia Abdomen: normal bowel sounds, non tender, soft, no organomegaly Extremities: no pedal edema Neurologic/Psychiatric: no motor/sensory deficits, alert, normal mood/affect, oriented x 3 Laboratory Results Last 24 Hours Test 04/15/16 06:30 04/15/16 09:34 White Blood Count 6.36 K/uL Red Blood Count 4.31 M/uL Hemoglobin 13.8 g/dL Hematocrit 39.3 % Mean Corpuscular Volume 91.2 fL Mean Corpuscular Hemoglobin 32.0 pg Mean Corpuscular Hemoglobin Concent 35.1 g/dl Platelet Count 241 K/uL Mean Platelet Volume 9.4 fL Neutrophils (%) (Auto) 56.9 % Lymphocytes (%) (Auto) 28.9 % Monocytes (%) (Auto) 11.0 % Eosinophils (%) (Auto) 2.7 % Basophils (%) (Auto) 0.3 % Neutrophils # (Auto) 3.62 K/uL Lymphocytes # (Auto) 1.84 K/uL Monocytes # (Auto) 0.70 K/uL Eosinophils # (Auto) 0.17 K/uL Basophils # (Auto) 0.02 K/uL RDW Standard Deviation 44.3 fL RDW Coefficient of Variation 13.2 % Immature Granulocyte % (Auto) 0.2 % Immature Granulocyte # (Auto) 0.01 K/uL Sodium Level 142 mmol/L Potassium Level 4.2 mmol/L Chloride Level 109 mmol/L Carbon Dioxide Level 25 mmol/L Anion Gap 8.0 mmol/L Blood Urea Nitrogen 14 mg/dl Creatinine 1.00 mg/dl Est Creatinine Clear Calc Drug Dose 91.5 ml/min Estimated GFR () 95.7 Estimated GFR (Non- 82.6 BUN/Creatinine Ratio 14.2 Random Glucose 96 mg/dl Calcium Level 8.4 mg/dl Triglycerides Level 132 mg/dl Cholesterol Level 176 mg/dl HDL Cholesterol 51 mg/dl LDL Cholesterol, Calculated 99 mg/dl VLDL Cholesterol, Calculated 26 mg/dl Cholesterol/HDL Ratio 3.5 Vitamin B12 Level 483 pg/mL Thyroid Stimulating Hormone (TSH) 0.777 uIu/ml Assessment and Plan 60yo male with: 1. alteration of consciousness / encephalopathy - resolved. history and symptoms most c/w transient global amnesia. all imaging studies of the brain/neck are NORMAL. doubt TIA. seizure unlikely, but obtained EEG, and this was negative for seizure activity. tele normal since admission. ordered 2D echo for completeness sake. appreciate neuro consultation. will cont asa 81mg daily. 2. sinus bradycardia - check TSH to exclude hypothyroidism. 3. DVT proph - heparin TID. anticipate d/c tomorrow if echo is normal Discharge planning: home
[2016-04-16 04:30] VITALS: BP 111/66; PULSE 50; TEMP 36.6; O2SAT 97
[2016-04-16] MEDS: HEPARIN SOD 5000 UNIT/0.5 ML CARP SQ SCH ×2 (06:04→14:00)
[2016-04-16 07:23] VITALS: BP 119/71; PULSE 48; TEMP 36.8; O2SAT 97
--- NOTE | 2016-04-16 07:28 | Neurology Progress Notes ---
Neurology Progress Note Date of Service Apr 16, 2016. Subjective Patient had no further episodes of confusion or memory problems since in the hospital. He feels well and has no headache, dizziness, vision problems, pain or weakness in the limbs, numbness, or other symptomatology. EEG was unremarkable with no focal abnormalities or potentially epileptogenic discharges. Echocardiogram is pending. Labs including chemistry profile, CBC, lipid profile, TSH, and B-12 were all unremarkable. Objective Date Time Temp Pulse Resp B/P Pulse Ox O2 Delivery O2 Flow Rate FiO2 04/16/16 04:30 36.6 50 16 111/66 97 Room Air 04/16/16 04:15 Room Air 04/16/16 00:00 Room Air 04/15/16 23:41 36.9 54 16 108/64 97 Room Air 04/15/16 20:00 94 Room Air 04/15/16 19:51 37.1 107 16 112/70 94 Room Air 04/15/16 16:30 Room Air 04/15/16 15:20 36.8 50 16 108/68 95 Room Air 04/15/16 12:45 Room Air 04/15/16 11:56 36.9 54 16 113/72 96 Room Air 04/15/16 08:45 Room Air 04/15/16 07:58 36.8 50 16 113/66 96 Room Air Last 24 Hours Test 04/15/16 09:34 Vitamin B12 Level 483 pg/mL Thyroid Stimulating Hormone (TSH) 0.777 uIu/ml Exam: He is awake and alert. Speech is normal without aphasia or dysarthria. Mood and affect are normal appropriate. Thought processes are intact. Extraocular eye muscles are intact without nystagmus. There is no facial droop. Coordination is normal in the arms. Strength is symmetrical in the limbs. Current Inpatient Medications Medications (Trade) Dose Ordered Sig/John Route Start Time Stop Time Status Last Admin Dose Admin Heparin Sodium (Porcine) (Heparin Sq 5000 Unit/0.5ml) 5,000 unit Q8 SQ 04/15/16 06:00 05/15/16 05:59 04/16/16 06:04 5,000 UNIT Acetaminophen (Tylenol Tab) 650 mg Q4H PRN PO 04/14/16 22:00 05/14/16 21:59 Al Hydrox/Mg Hydrox/Simethicone (Maalox Max Susp) 15 ml Q4H PRN PO 04/14/16 22:00 05/14/16 21:59 Magnesium Hydroxide (Milk Of Magnesia Susp) 30 ml Q12H PRN PO 04/14/16 22:00 05/14/16 21:59 Ondansetron HCl (Zofran Inj) 4 mg Q6H PRN IV 04/14/16 22:00 05/14/16 21:59 Polyethylene (Miralax Powder Packet) 17 gm DAILY PRN PO 04/14/16 22:00 05/14/16 21:59 Gadopentetate Dimeglumine (Magnevist) 20 ml UD PRN IV 04/14/16 23:30 04/18/16 23:29 Aspirin (Ecotrin Tab) 81 mg QAM PO 04/16/16 09:00 05/16/16 08:59 Impression 1. Episode 2-, lasting 3-4 hours, of memory dysfunction, most consistent with transient global amnesia. There is no evidence of acute stroke and there is no evidence of previous cerebrovascular events with an MRI being quite normal. Circulation the head and neck is unremarkable with no stenoses or aneurysm. On neurologic examination, he remains normal with no focal signs, meningeal signs, or encephalopathy. Etiology of transient global seizures considered to be vasospasm in the temporal lobe. In his case, it is most likely due to vasospasm secondary to hypertension. There is no evidence to suggest a seizure disorder in this patient. EEG was unremarkable 2. Hypertension Not adequately controlled off medication on admission, but much improved over the last 24 hours. Glucose is normal and lipid profile was unremarkable. Plan 1. Treat and control blood pressure as you are doing. 2. I see no reason for any additional neurologic testing or treatment at this time. 3. Continue 81 mg aspirin tablet daily. 4. Echocardiogram results are pending. He needs to return to his primary care physician and have his blood pressure optimally controlled. He does not need neurologic follow-up as an outpatient unless further issues arise. Please contact me if I can be of further assistance.
[2016-04-16 08:00] VITALS: O2SAT 97
[2016-04-16] MEDS ORDERED: ASPIRIN 81 MG ECTAB PO SCH (09:00)
[2016-04-16 12:00] VITALS: O2SAT 96
[2016-04-16 12:22] VITALS: BP 118/74; PULSE 55; TEMP 36.9; O2SAT 96
--- NOTE | 2016-04-16 14:06 | ECHOCARDIOGRAM REPORT ---
*NOTICE TO RECEIVING REPUBL[employer] AGENCY This information is strictly Confidential and protected under [place] law. [place] law prohibits you from making any further disclosure of this information unless further disclosure is expressly permitted by the written consent of the person to whom it pertains or is authorized by law. A general authorization for the release of medical or other information is not sufficient for this purpose. Hospital accepts no responsibility if the information is made available to any other person, INCLUDING THE PATIENT. Interpretation Summary * Name: BIB ABDULLAHI Study Date: 04/16/2016 07:27 AM BP: 111/66 mmHg * Patient Location: [facility]\S\N286\S\1 HR: 47 * : 1955 (M/d/yyyy) Gender: Male Height: 69 in * Age: 60 yrs Ethnicity: [place] Weight: 208 lb * Ordering Physician: Joselito Moffett * Referring Physician: Self, Referred * Performed By: Lindsay Rodriguez RCS * * Reason For Study: Alt. of Consciousness * BSA: 2.1 m2 * -- Conclusions -- * 1. Normal left ventricular size and systolic function. EF 55-60%. No regional wall motion abnormalities. No left ventricular hypertrophy. * 2. No significant valvular abnormalities. * 3. No prior study available for comparison. Procedure Details * A complete two-dimensional transthoracic echocardiogram was performed (2D, M-mode, Doppler and color flow Doppler). Left Ventricle * Normal left ventricular size and systolic function. EF 55-60%. No regional wall motion abnormalities. No left ventricular hypertrophy. Right Ventricle * The right ventricle is normal in size and function. * The right ventricular systolic function is normal as assessed by tricuspid annular plane systolic excursion (TAPSE) (normal >1.5 cm). Atria * The left atrial size is normal. * Right atrial size is normal. * There is no evidence of atrial septal defect, but resolution does not allow assessment for a patent foramen ovale. Mitral Valve * The mitral valve is grossly normal. * There is no mitral valve stenosis. * There is trace mitral regurgitation. Tricuspid Valve * The tricuspid valve is not well visualized, but is grossly normal. * There is no tricuspid stenosis. * There is mild tricuspid regurgitation. Aortic Valve * The aortic valve is normal in structure and function. * The aortic valve is trileaflet. * No hemodynamically significant valvular aortic stenosis. * No aortic regurgitation is present. Pulmonic Valve * The pulmonary valve is inadequately visualized, but the Doppler data is adequate for interpretation. * There is no pulmonic valvular stenosis. * There is no significant pulmonary regurgitation. Great Vessels * The aortic root is normal size. * Ascending aorta of normal dimension Pericardium/Pleural * There is no pericardial effusion. Great Vessels * Normal inferior vena cava size and collapsability with sniff indicates a normal right atrial pressure of 3 mmHg MMode 2D Measurements and Calculations IVSd 1.0 cm IVSs 1.4 cm LVIDd 5.1 cm LVIDs 3.1 cm LVPWd 1.0 cm LVPWs 1.3 cm IVS/LVPW 1.0 FS 38.1 % EDV(Teich) 122.6 ml ESV(Teich) 39.3 ml EF(Teich) 68.0 % EDV(cubed) 131.0 ml ESV(cubed) 31.1 ml EF(cubed) 76.2 % % IVS thick 33.4 % % LVPW thick 30.3 % LV mass(C)d 195.8 grams LV mass(C)dI 93.2 grams/m\S\2 LV mass(C)s 143.7 grams LV mass(C)sI 68.4 grams/m\S\2 CO(Teich) 4.0 l/min CI(Teich) 1.9 l/min/m\S\2 SV(Teich) 83.3 ml SI(Teich) 39.7 ml/m\S\2 CO(cubed) 4.8 l/min CI(cubed) 2.3 l/min/m\S\2 SV(cubed) 99.9 ml SI(cubed) 47.6 ml/m\S\2 Ao root diam 3.3 cm Ao root area 8.7 cm\S\2 ACS 2.1 cm LA dimension 3.6 cm asc Aorta Diam 3.1 cm LA/Ao 1.1 LVAd ap4 38.0 cm\S\2 LVLd ap4 9.2 cm EDV(MOD-sp4) 133.0 ml EDV(sp4-el) 123.8 ml LVAs ap4 22.3 cm\S\2 LVLs ap4 7.3 cm ESV(MOD-sp4) 57.0 ml ESV(sp4-el) 52.2 ml EF(MOD-sp4) 57.1 % EF(sp4-el) 57.8 % LVAd ap2 36.7 cm\S\2 LVLd ap2 10.2 cm EDV(MOD-sp2) 109.0 ml EDV(sp2-el) 128.9 ml LVAs ap2 19.6 cm\S\2 LVLs ap2 8.1 cm ESV(MOD-sp2) 42.0 ml ESV(sp2-el) 54.2 ml EF(MOD-sp2) 61.5 % EF(sp2-el) 58.0 % CO(MOD-sp4) 3.6 l/min CI(MOD-sp4) 1.7 l/min/m\S\2 SV(MOD-sp4) 76.0 ml SI(MOD-sp4) 36.2 ml/m\S\2 CO(MOD-sp2) 3.2 l/min CI(MOD-sp2) 1.5 l/min/m\S\2 SV(MOD-sp2) 67.0 ml SI(MOD-sp2) 31.9 ml/m\S\2 CO(sp4-el) 3.4 l/min CI(sp4-el) 1.6 l/min/m\S\2 SV(sp4-el) 71.6 ml SI(sp4-el) 34.1 ml/m\S\2 CO(sp2-el) 3.6 l/min CI(sp2-el) 1.7 l/min/m\S\2 SV(sp2-el) 74.7 ml SI(sp2-el) 35.6 ml/m\S\2 Doppler Measurements and Calculations MV E max ronan 65.7 cm/sec MV A max ronan 50.3 cm/sec MV E/A 1.3 MV P1/2t max ronan 73.4 cm/sec MV P1/2t 156.8 msec MVA(P1/2t) 1.4 cm\S\2 MV dec slope 137.1 cm/sec\S\2 MV dec time 0.29 sec Ao V2 max 108.0 cm/sec Ao max PG 4.7 mmHg Ao max PG (full) 0.63 mmHg LV V1 max PG 4.0 mmHg LV V1 max 100.5 cm/sec PA V2 max 80.9 cm/sec PA max PG 2.6 mmHg PI max ronan 180.3 cm/sec PI max PG 13.0 mmHg PI dec slope 117.1 cm/sec\S\2 PI P1/2t 450.7 msec TR max ronan 198.3 cm/sec RVSP(TR) 18.7 mmHg RAP systole 3.0 mmHg
[2016-04-16] MEDS ORDERED: IBUP-1050 PO (14:57)
--- NOTE | 2016-04-16 15:03 | Discharge Instructions ---
Discharge Instructions Admission Reason for Admission: Transient Global Amnesia Discharge Discharge Diagnosis / Problem: Transient global amnesia Discharge Goals Goal(s): Learn about illness, Diagnostic testing Activity Recommendations Activity Limitations: resume your previous activity Exercise/Sports Limitations: none May Resume Sexual Activity: when tolerated Shower/Bathe: no limitations Driving or Machine Use: no limitations . Instructions / Follow-Up Instructions / Follow-Up From Dr. Moffett - 1. The medical team believes that you had "transient global amnesia." This is not a stroke, mini-stroke, or "TIA". However, the symptoms can sometimes mimic a stroke. 2. Continue to take your aspirin once daily. 3. Other: Risk Factors for Stroke: You can reduce your chances of stroke by working with your medical provider to adopt a healthy lifestyle. Some specific ways to lower your chance of stroke are: * If you are a smoker, now is the time to stop smoking cigarettes * If you are diabetic, improve the control of your blood sugars * Avoid excessive amounts of alcohol * Control high blood pressure * Lose weight if you are overweight * Be sure to lead an active lifestyle * Eat a healthy diet low in salt, cholesterol and fat You should know about other risk factors for stroke that you are unable to control. These include: * Age 55 years or older * Male gender * Certain racial groups: , or / * Family History of Stroke, Mini stroke or Heart Attack 4. see Dr. See within 1 week. Current Hospital Diet Patient's current hospital diet: AHA Diet (Heart Healthy) Discharge Diet Recommended Diet: Regular Diet Procedures Procedures Performed: MRI brain - no stroke seen. MRA brain - no evidence of aneurysm in the brain. MRA neck - no evidence of blocked arteries in the neck. Echocardiogram - normal heart function and normal heart valves; no blood clot seen either. Pending Studies Studies pending at discharge: no Laboratory Results Hemoglobin A1c Test 04/14/16 17:15 Range/Units Estimated Average Glucose 108 mg/dl Hemoglobin A1c 5.4 4.5-5.6 % Lipid Panel Test 04/15/16 06:30 Range/Units Triglycerides Level 132 0-150 mg/dl Cholesterol Level 176 0-200 mg/dl HDL Cholesterol 51 mg/dl Cholesterol/HDL Ratio 3.5 LDL Cholesterol, Calculated 99 mg/dl Medical Emergencies . Who to Call and When: Medical Emergencies: Call 911 immediately if you experience any of the following warning signs and symptoms of Stroke: * Sudden numbness or weakness of the face, arm or leg, especially on one side of the body * Sudden confusion, trouble speaking or understanding * Sudden trouble seeing in one or both eyes * Sudden trouble walking, dizziness, loss of balance or coordination * Sudden severe headache with no cause Do not delay calling 911 if you experience any warning signs or symptoms of a stroke. Delay in seeking medical attention may affect what treatments can be given to you. . Non-Emergent Contact Non-Emergency issues call your: Primary Care Provider Call Non-Emergent contact if: temperature is above 100.5, you have any medication questions ANY repeat episodes of confusion, weakness, headaches, numbness in your arms or legs, etc . . "Provider Documentation" section prepared by Joselito Moffett. Stroke Core Measures Reason no t-PA for Stroke: Treatment not indicated Reason no antithrom by day 2: Treatment provided - N/A Reason no antithrom at D/C: Treatment provided - N/A Reason no statin at D/C: Treatment not indicated Reason no anticoag w/a fib: Treatment not indicated VTE Core Measure Inpt VTE Proph given/why not?: Unfractionated heparin SQ
[2016-04-16 15:34] VITALS: BP 126/70; PULSE 65; TEMP 36.6; O2SAT 95
--- NOTE | 2016-04-16 22:21 | Discharge Summary ---
Discharge Summary Admission Date: Apr 14, 2016 at 21:58 Discharge Date: Apr 16, 2016 Discharge Disposition: Home Principal Diagnosis: transient global amnesia Procedures: 1. CT head negative 2. MRI brain negative for stroke 3. MRA brain normal 4. MRA neck normal 5. EEG negative for seizure activity 6. echocardiogram - 1. Normal left ventricular size and systolic function. EF 55-60%. No regional wall motion abnormalities. No left ventricular hypertrophy. 2. No significant valvular abnormalities. 3. No prior study available for comparison. Consultations: neurology - Juvencio Alcocer MD Medication Reconciliation Changed Medications: Ibuprofen (Advil) 200 Mg Tab 4 TAB PO Q8H PRN for Pain, #1 TAB (Changed from: 5-6 TAB; DIRECTED) take no more than 4 tabs at a time, up to 3 times a day Continued Medications: Aspirin (Aspirin Ec) 81 Mg Tab 81 MG PO DAILY Discharge Exam Physical Exam: General Appearance: WD/WN, no apparent distress ENT: pharynx normal Neck: no JVD Respiratory/Chest: lungs clear, no respiratory distress, no accessory muscle use Cardiovascular: regular rate, rhythm, no gallop, no murmur, normal peripheral pulses Abdomen / GI: normal bowel sounds, non tender, soft, no organomegaly Extremities: no pedal edema Neurologic/Psychiatric: 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 He recalls waking up at 5pm, walking to the bathroom and then does not remember anything until he arrived at the hospital a few hours later. His was with him throughout and states that he was disoriented and had lost his short-term memory although he did have long-term recall. He does not use sleep aids. He denies a FITZGERALD, unilateral weakness, slurred speech or impaired vision. He has no history of vascular disease. Initial CT obtained in the ER was negative for any pathology. He is fully oriented at the time of admission and states that he feels back to baseline. HOSPITAL COURSE: The patient's presentation was felt to be consistent with transient global amnesia. His symptomatology was felt not to represent a TIA. He underwent neurological consultation as well as an extensive work-up including MRI/MRA brain, MRA neck, echocardiogram, and EEG all of which was normal. Telemetry showed periods of sinus bradycardia but no dysrhythmia. TSH and all other labs were normal. He had no further episodes of confusion, transient memory loss, or any other new neurological symptoms. He was advised to continue taking aspirin 81mg once daily but no other medications were recommended. It is possible that this event was precipitated by strenuous activity at his work-place as the episode occurred a short time after his shift. Total Time Spent: Less than 30 minutes This includes examination of the patient, discharge planning, medication reconciliation, and communication with other providers. Discharge Instructions Please refer to the electronic Patient Visit Report (Discharge Instructions) for additional information. Follow-Up see Dr. See within 1 week Additional Copies To RV. Claire MD
== END 2016-04-16 15:36 | disposition home or self-care (01) | DRG 70 ==
LOC: ENRESERVDT → ENRESERVTM → C.EDB 17:55 → C.MED 21:58
PROVIDERS: ADMIT Internal Medicine; ATTEND Internal Medicine
DX: G45.4 Transient global amnesia (principal); G93.40 Encephalopathy, unspecified; R00.1 Bradycardia, unspecified; I10 Essential (primary) hypertension; F17.210 Nicotine dependence, cigarettes, uncomplicated; Z79.82 Long term (current) use of aspirin

== ENCOUNTER → 2016-06-20 | Outpatient (CLI) | payer BC ==
[~2016-06-20] MED LIST: ASPI81TA28 PO; IBUP-1050 PO
== END | disposition home or self-care (01) ==
LOC: C.LAB1850 07:15
PROVIDERS: ATTEND Internal Medicine
DX: R41.3 Other amnesia (principal); R73.01 Impaired fasting glucose

== ENCOUNTER → 2016-11-25 | Outpatient (CLI) | payer BC ==
[2016-11-25 09:57] LABS: ESTIMATED AVERAGE GLUCOSE 114 mg/dl; HA1C FLAG Normal (Normal)
[2016-11-25 10:12] LABS: ALT/SGPT 22 U/L (12-78); BLOOD UREA NITROGEN 15 mg/dl (7-18); CALCIUM 8.8 mg/dl (8.5-10.1); CARBON DIOXIDE 25 mmol/L (21-32); CHLORIDE 109 mmol/L (98-107); CHOLESTEROL 144 mg/dl (0-200); GLUCOSE 110 mg/dl (70-99); POTASSIUM 4.3 mmol/L (3.5-5.1); SODIUM 139 mmol/L (136-145); TRIGLYCERIDES 71 mg/dl (0-150); VERY LOW DENSITY LIPOPROT CALC 14 mg/dl
[2016-11-25 10:16] LABS: ALB/GLOB RATIO 1.3 (0.9-2); ALKALINE PHOSPHATASE 57 U/L (45-117); AST/SGOT 16 U/L (15-37); CHOLESTEROL/HDL RATIO 2.4; HDL CHOLESTEROL 61 mg/dl; LDL CHOLESTEROL CALCULATED 69 mg/dl; PROSTATE SPECIFIC ANTIGEN 0.629 ng/ml (0.000-4.000)
== END | disposition home or self-care (01) ==
LOC: C.LAB1850 07:24
PROVIDERS: ATTEND Internal Medicine
DX: R41.3 Other amnesia (principal); R73.01 Impaired fasting glucose; Z12.5 Encounter for screening for malignant neoplasm of prostate